=== PATIENT | female | born 1970 | race Caucasian/White ===

== ENCOUNTER 2023-12-12 10:40 | Emergency (ER) | payer MEDICARE, SELFPAY ==
[2023-12-12] VITALS (12 sets, daily range): BP systolic 103–130; BP diastolic 59–75; PULSE 80–129; RESP 10–23; TEMP 36.6; O2SAT 92–97; BMI 25.7
--- NOTE | 2023-12-12 10:48 | DI.RAD.S_ITS ---
PROCEDURE: XR CHEST 1V INDICATIONS: chest pain TECHNIQUE: One view of the chest was acquired. COMPARISON: None. FINDINGS: Surgical changes and devices: None. Lungs and pleura: Lungs are clear. No pleural effusions or pneumothorax. Mediastinum: Mediastinal contours appear normal. Heart size is normal. Bones and chest wall: No suspicious bony lesions. Overlying soft tissues appear unremarkable. IMPRESSION: No acute cardiopulmonary abnormality is seen. Dictated by: Wilbur Phan M.D. on 12/12/2023 at 11:38 Approved by: Wilbur Phan M.D. on 12/12/2023 at 11:38
[2023-12-12 11:09] LABS: Add Manual Diff / Slide Review NO; Basophils Absolute Auto 0 /uL (0-100); Basophils Percent Auto 0.9 % (0-2); Eosinophils Absolute Auto 300 /uL (0-450); Hematocrit 38.5 % (36-46); Hemoglobin 13.2 g/dL (12.0-16.0); Lymphocytes Absolute Auto 1700 /uL (1100-4500); Lymphocytes Percent Auto 31.4 % (25-40); Mean Corpuscular HGB Conc 34.3 % (30-36); Mean Corpuscular Hemoglobin 32.6 PG (26-34); Monocytes Absolute Auto 400 /uL (0-900); Monocytes Percent Auto 7.2 % (3-14); Neutrophils Absolute Auto 3100 /uL (1500-7000); Neutrophils Percent Auto 55.5 % (50-75); Platelet Count 310 X10^3/uL (150-400); Red Blood Cell Count 4.05 X10^6/uL (4.0-5.2); Red Cell Distribution Width 12.5 % (11.6-14.8); White Blood Cell Count 5.5 X10^3/uL (4.5-11.0)
[2023-12-12 11:18] LABS: INR 0.9 (0.9-1.3); Prothrombin Time 10.2 SECONDS (9.4-12.5)
[2023-12-12 11:21] LABS: PTT Partial Thromboplastin Tim 36 SECONDS (25.1-36.5)
[2023-12-12 11:22] LABS: Alanine Aminotransferase 28 IU/L (<35); Albumin 4.5 g/dL (3.5-5.0); Albumin Globulin Ratio 1.4 (1.0-2.8); Alkaline Phosphatase 57 U/L (38-126); Aspartate Aminotransferase 42 IU/L (14-36); BUN Creatinine Ratio 10.6 (6-22); Bilirubin Total 0.7 mg/dL (0.2-1.3); Blood Urea Nitrogen 7 mg/dL (7-17); Calcium 9.5 mg/dL (8.4-10.2); Carbon Dioxide 24 mmol/L (22-32); Chloride 103 mmol/L (98-107); Creatine Kinase 55 U/L (30-135); Estimated Glomerular Filt Rate > 60 mL/min (>60); Globulin 3.2 g/dL (1.7-4.1); Glucose 115 mg/dL (70-100); HEMOLYSIS 18 (0-50); Lipase 46 U/L (23-300); Magnesium 1.5 mg/dL (1.6-2.3); Potassium 3.7 mmol/L (3.4-5.1); Sodium 137 mmol/L (137-145); Total Protein 7.7 g/dL (6.3-8.2)
[2023-12-12 11:33] LABS: Troponin I < 0.012 ng/mL (0.01-0.034)
--- NOTE | 2023-12-12 12:02 | ED_ITS ---
HPI - Arrhythmia/Palpitations General Chief Complaint: Arrhythmia/Palpitations Stated Complaint: shaky heart racing having trouble catching breath Time Seen by Provider: 12/12/23 12:02 Source: patient Mode of arrival: Family Vehicle History of Present Illness HPI narrative: 53-year-old female with history of mood disorder, anxiety on Suboxone. Patient states she is felt weird and out of sorts the last several days. She feels like heart rate is fast and she has had palpitations and felt shaky. She is felt generally weak and like she might pass out. No syncope. Denies headache, denies fevers or chills. No chest pain or pressure, she is felt short of breath today. She denies any cold cough or congestive symptoms. No nausea, no vomiting. No abdominal back flank pain. No dysuria urgency or frequency. No issues with bowel movements such as diarrhea constipation. No vaginal bleeding or discharge. No new swelling in extremities. Patient has not had similar episodes in the past. Patient states she has been on Suboxone for about a month she has been on the same dose the entire time. She was wondering if it might be secondary to her Suboxone. She is also on Effexor, quetiapine, estradiol oral and lamotrigine. She states she has been on these medications for some time with no other dosage changes. She does smoke tobacco, denies any alcohol or recent recreational drugs. Patient lives in [place] but is visiting the [facility] currently. She states she will be returning can follow up locally in [place]. Patient's accompanied by her father Related Data Home Medications Medication Instructions Recorded Confirmed buprenorphine 8 mg-naloxone 2 mg 1 film sublingual ONCE PM PRN pain 12/12/23 12/15/23 sublingual film estradiol 1 mg tablet 1 mg PO ONCE PM 12/12/23 12/15/23 lamotrigine 150 mg tablet 300 mg PO ONCE PM 12/12/23 12/15/23 quetiapine 300 mg tablet 600 mg PO ONCE PM 12/12/23 12/15/23 venlafaxine 37.5 mg tablet 37.5 mg PO DAILY 12/12/23 12/15/23 Previous Rx's Medication Instructions Recorded diazepam 2 mg tablet 2 mg PO BID PRN alcohol withdrawal 12/16/23 3 days #5 tabs gabapentin 300 mg capsule See Rx Instructions .Route 12/16/23 .COMPLEX #10 caps Allergies Allergy/AdvReac Type Severity Reaction Status Date / Time codeine Allergy Verified 12/12/23 10:58 Sulfa (Sulfonamide Allergy Swelling Verified 12/12/23 10:58 Antibiotics) of Lip/Tongue/Throat Review of Systems Review of Systems ROS Unobtainable: All systems reviewed & are unremarkable except as noted in HPI and below Patient History Social History household members: spouse Smoking Status: Current every day smoker alcohol intake: current Smoking Status: Current every day smoker tobacco type: cigarettes alcohol intake frequency: 0-2 drinks per day Substance Use Type: does not use Exam Narrative Exam Narrative: GENERAL: Alert and oriented x three, female in mild distress. HEENT: Head normocephalic, atraumatic, EOMI, pupils reactive, face symmetric, moist mucous membranes NECK: Supple, full range of motion CARDIOVASCULAR: Slightly tachy rate of high 90s to 100 rate and normal rhythm without murmurs, rubs or gallops. No JVD. No swelling bilateral lower extremities. RESPIRATORY: Breath sounds equal bilaterally, no wheezes rales or rhonchi. No tachypnea or accessory muscle use. ABDOMEN: Soft, nontender. Normoactive bowel sounds all 4 quadrants. No guarding or rebound, rigidity, no mass : No CVA tenderness EXTREMITIES: Normal range of motion, no clubbing or edema. Neurovascularly intact NEUROLOGICAL: Cranial nerves II through XII grossly intact. Moving all extremities SKIN: Warm, dry, no petechiae, no rashes or lesions. Initial Vital Signs Initial Vital Signs: Vital Signs Temperature 97.9 F 12/12/23 10:51 Pulse Rate 121 H 12/12/23 10:51 Respiratory Rate 18 12/12/23 10:51 Blood Pressure 130/75 12/12/23 10:51 Pulse Oximetry 95 12/12/23 10:51 Oxygen Delivery Method Room Air 12/12/23 10:51 Course Orders Ordered: Discontinued Medications Aspirin (Aspirin 81 Mg Chew Tab) 324 mg PO NOW ONE Stop: 12/12/23 10:49 Last Admin: 12/12/23 11:07 Dose: Not Given Documented By: DAISY Sodium Chloride (Normal Saline 0.9%) 1,000 mls @ 1,000 mls/hr IV BOLUS ONE Stop: 12/12/23 13:29 Last Infusion: 12/12/23 14:03 Dose: Infused Documented By: Admin: 12/12/23 12:37 Dose: 1,000 mls/hr Documented By: DAISY Magnesium Sulfate (Magnesium Sulfate) 2 gm in 50 mls @ 25 mls/hr IV NOW ONE Stop: 12/12/23 14:29 Last Infusion: 12/12/23 14:41 Dose: Infused Documented By: KATHERINE Co-signed By: LAVON Admin: 12/12/23 12:50 Dose: 25 mls/hr Documented By: DAISY Co-signed By: LAVON Lorazepam (Lorazepam 0.5 Mg Tablet) 0.5 mg PO NOW ONE Stop: 12/12/23 13:28 Last Admin: 12/12/23 13:35 Dose: 0.5 mg Documented By: DAISY Vital Signs Vital signs: Vital Signs - 8 hr 12/12/23 10:51 12/12/23 10:51 12/12/23 10:54 Temperature 97.9 F Pulse Rate 121 H 129 H Respiratory Rate 18 17 Blood Pressure 130/75 130/75 Pulse Oximetry 95 97 Oxygen Delivery Method Room Air Room Air 12/12/23 10:54 12/12/23 11:00 12/12/23 11:00 Temperature Pulse Rate 116 H 109 H Respiratory Rate 16 Blood Pressure 111/74 Pulse Oximetry 94 94 Oxygen Delivery Method 12/12/23 11:30 12/12/23 11:30 12/12/23 12:00 Temperature Pulse Rate 100 H Respiratory Rate 10 L Blood Pressure 103/61 108/64 Pulse Oximetry 93 Oxygen Delivery Method 12/12/23 12:00 12/12/23 12:30 12/12/23 12:30 Temperature Pulse Rate 100 H 95 H Respiratory Rate 16 15 Blood Pressure 113/65 Pulse Oximetry 94 94 Oxygen Delivery Method Room Air Room Air 12/12/23 13:00 12/12/23 13:00 Temperature Pulse Rate 90 Respiratory Rate 15 Blood Pressure 106/60 Pulse Oximetry 92 Oxygen Delivery Method MDM - Arrhythmia/Palpitations Lab Data 12/12/23 11:00 12/12/23 11:00 Labs: Lab Results 12/12/23 Range/Units 11:00 WBC 5.5 (4.5-11.0) X10^3/uL RBC 4.05 (4.0-5.2) X10^6/uL Hgb 13.2 (12.0-16.0) g/dL Hct 38.5 (36-46) % MCV 95.0 (80-100) fL MCH 32.6 (26-34) PG MCHC 34.3 (30-36) % RDW 12.5 (11.6-14.8) % Plt Count 310 (150-400) X10^3/uL Neut % (Auto) 55.5 (50-75) % Lymph % (Auto) 31.4 (25-40) % [place] % (Auto) 7.2 (3-14) % Eos % (Auto) 5.0 H (2-4) % Baso % (Auto) 0.9 (0-2) % Neut # (Auto) 3100 (4371-1393) /uL Lymph # (Auto) 1700 (9861-4370) /uL [place] # (Auto) 400 (0-900) /uL Eos # (Auto) 300 (0-450) /uL Baso # (Auto) 0 (0-100) /uL PT 10.2 (9.4-12.5) SECONDS INR 0.9 (0.9-1.3) APTT 36 (25.1-36.5) SECONDS D-Dimer 382 (<500) ng/ml Sodium 137 (137-145) mmol/L Potassium 3.7 (3.4-5.1) mmol/L Chloride 103 (98-107) mmol/L Carbon Dioxide 24 (22-32) mmol/L BUN 7 (7-17) mg/dL Creatinine 0.66 (0.52-1.04) mg/dL Estimated GFR > 60 (>60) mL/min BUN/Creatinine Ratio 10.6 (6-22) Glucose 115 H (70-100) mg/dL Calcium 9.5 (8.4-10.2) mg/dL Magnesium 1.5 L (1.6-2.3) mg/dL Total Bilirubin 0.7 (0.2-1.3) mg/dL AST 42 H (14-36) IU/L ALT 28 (<35) IU/L Alkaline Phosphatase 57 (38-126) U/L Total Creatine Kinase 55 (30-135) U/L Troponin I < 0.012 (0.01-0.034) ng/mL Total Protein 7.7 (6.3-8.2) g/dL Albumin 4.5 (3.5-5.0) g/dL Globulin 3.2 (1.7-4.1) g/dL Albumin/Globulin Ratio 1.4 (1.0-2.8) Lipase 46 (23-300) U/L Lamotrigine 11.3 (2.0-20.0) ug/mL Imaging Data Chest x-ray: Radiologist's Impresson: [address] [id number] XRay Report Signed Patient: Claire Eaton MR#: [id number] : 1970 Acct:[id number] Age/Sex: 53 / F Date of Service: 12/12/23 Loc: ED Accession Number: [id number] Procedure: XR chest 1V Ordering Provider: Louise Quach D.O. PROCEDURE: XR CHEST 1V INDICATIONS: chest pain TECHNIQUE: One view of the chest was acquired. COMPARISON: None. FINDINGS: Surgical changes and devices: None. Lungs and pleura: Lungs are clear. No pleural effusions or pneumothorax. Mediastinum: Mediastinal contours appear normal. Heart size is normal. Bones and chest wall: No suspicious bony lesions. Overlying soft tissues appear unremarkable. IMPRESSION: No acute cardiopulmonary abnormality is seen. Dictated by: Wilbur Phan M.D. on 12/12/2023 at 11:38 Approved by: Wilbur Phan M.D. on 12/12/2023 at 11:38 ECG Data Attestation: I personally reviewed and interpreted this ECG as follows: Interpretation: Sinus tachycardia rate of 112 ND 152 QRS of 96 QTC 447. Q-wave 2 3 AVF., no acute ST elevation depression. Patient has no priors for comparison. MDM Narrative Medical decision making narrative: 53-year-old female with mood disorder, on Suboxone for approximately a month. Patient is felt sort of out of sorts and weird for several days and feels palpitations and shaky and like her heart rate is fast and lightheaded in the last day. Initial labs including CBC, coags, CMP are appropriate, Mag is 1.5, AST is 42, other LFTs are negative. Troponins negative. Chest x-ray was negative. EKG showed some sinus tach Q-wave in 2 3 AVF but no T-wave inversions or elevation. No priors for comparison. Discussed with patient she is on oral estrogen, she does continue to smoke, she is driven up from [place] so we will add a D-dimer on she has felt a little short of breath in his slightly tachycardic. D-dimer is negative. Also sent a Lamictal level, this is pending in his send out. Patient is quite concerned that her Suboxone maybe causing her symptoms she notes she has been on the same dose for the entire month but we discussed she could hold the doses he how she tolerates. She asked if there was anything to reverse it we discussed Narcan but I did not recommend that. Patient was given a 1L of fluid, magnesium replacement on recheck. Patient's heart rate has not improved. Discharge Plan Departure Patient Disposition: Home Clinical Impression: Palpitations Activity Restrictions/Additional Instructions: Please follow up for recheck. Your Lamictal level is pending. Please call to follow up your level of the next day or two. If you would like you can hold your Suboxone but you will likely have some withdrawal symptoms. Make sure you continue to hydrate. Please return for fevers, severe headaches, passing out, new chest pain, increasing shortness of breath, persistent vomiting, new swelling in extremities, black or bloody stools or other new or Prescriptions: No Action buprenorphine-naloxone 8-2 mg film 1 film sublingual ONCE PM PRN (Reason: pain) Patient Comments: cuts into 3 and splits the dose each day estradiol 1 mg tablet 1 mg PO ONCE PM lamotrigine 150 mg tablet 300 mg PO ONCE PM quetiapine 300 mg tablet 600 mg PO ONCE PM venlafaxine 37.5 mg tablet 37.5 mg PO DAILY gabapentin 300 mg capsule See Rx Instructions .ROUTE .COMPLEX Qty: 10 0RF Rx Instructions: 300 mg PO every 6 hours day 1, every 8 hours day 2, every 12 hours day 3, then at night on day 4. diazepam 2 mg tablet 2 mg PO BID PRN (Reason: alcohol withdrawal) 3 Days Qty: 5 0RF Stand Alone Forms: Patient Portal/API
[2023-12-12] MEDS: SODIUM CHLORIDE 0.9% 1,000 ML 1000 ML IV (12:37)
[2023-12-12] MEDS: MAGNESIUM SULFATE 2 GM/50 ML PIGGYBACK IV (12:50)
[2023-12-12 13:07] LABS: D Dimer 382 ng/ml (<500)
[2023-12-12] MEDS: LORazepam 0.5 MG TABLET PO (13:35)
[2023-12-17 15:29] LABS: Lamotrigine Lamictal 11.3 ug/mL (2.0-20.0)
== END 2023-12-12 14:45 | disposition home or self-care (01) ==
PROVIDERS: Emergency Provider Emergency Medicine
DX: R00.2 Palpitations (principal); R07.9 Chest pain, unspecified
CPT/HCPCS: 36415; 71045; 80053; 80175; 82550; 83690; 83735; 84484; 85025; 85379; 85610; 85730; 93005; 99284; J3475

== ENCOUNTER 2023-12-15 17:50 | Observation (INO) | payer MEDICARE, SELFPAY ==
[2023-12-15] VITALS (22 sets, daily range): BP systolic 124–174; BP diastolic 74–111; PULSE 76–106; RESP 10–47; TEMP 36.7–37; O2SAT 92–99; BMI 25.7
--- NOTE | 2023-12-15 06:52 | DI.MRI.S_ITS ---
PROCEDURE: MR HEAD/BRAIN WO CON INDICATIONS: altered mental status TECHNIQUE: Noncontrast axial T1 spin echo, axial T2 fast spin echo, sagittal and axial FLAIR, coronal T2 fast spin echo, axial gradient echo, axial diffusion and ADC through the brain. COMPARISON: None. FINDINGS: Image quality: There are motion artifacts. CSF Spaces: Basal cisterns are patent. No extra-axial fluid collections. Ventricles are normal in size and shape. Brain: No intracranial masses or hemorrhage. Lag[place]re/white matter interface is normal. Brainstem appears normal. Diffusion-weighted images demonstrate no acute infarct. No chronic ischemic insults. Normal intravascular flow voids are present. Skull and face: Calvarium has normal marrow signal. Orbits appear normal. Sinuses: Sinuses and mastoids are clear. IMPRESSION: 1. No acute intracranial abnormalities. Dictated by: Ade Haji M.D. on 12/16/2023 at 8:23 Approved by: Ade Haji M.D. on 12/16/2023 at 8:25
--- NOTE | 2023-12-15 18:22 | ED.GENADULT ---
HPI - General Adult General Chief complaint: Toxicology Problem Stated complaint: Feels faint Time Seen by Provider: 12/15/23 18:04 Source: patient and family History of Present Illness HPI narrative: Patient comes to the ED with her sister. She is normally a resident in [place] but has been visiting this area for the past month living with her sister and mother. Her mother is in poor health. She has been stable with her opioid dependence now for some months on 8 mg buprenorphine daily. She also drinks alcohol ?2 glasses of wine? daily. She says that has been the case for many months. Sister suspects that perhaps this is more recently than she had been drinking. The patient reports a general feeling of unwellness over the past week. She says she feels like she might pass out. She says she feels discomfort in her chest and abdomen though not discrete pain. She denies URI symptoms. She endorses nausea but denies vomiting. No GI symptoms otherwise. Specifically no constipation or diarrhea. No dysuria urgency or frequency. No fever. No new medications. She says she takes a number of medications for and is disabled because of bipolar disorder. No recent medication changes. No other sedative medications. She does smoke cigarettes daily. Related Data Home Medications Medication Instructions Recorded Confirmed buprenorphine 8 mg-naloxone 2 mg 10 mg sublingual ONCE PM PRN pain 12/12/23 12/12/23 sublingual film estradiol 1 mg tablet 1 mg PO ONCE PM 12/12/23 12/12/23 lamotrigine 150 mg tablet 300 mg PO ONCE PM 12/12/23 12/12/23 quetiapine 300 mg tablet 600 mg PO ONCE PM 12/12/23 12/12/23 venlafaxine 37.5 mg tablet 37.5 mg PO DAILY 12/12/23 12/12/23 Allergies Allergy/AdvReac Type Severity Reaction Status Date / Time codeine Allergy Verified 12/12/23 10:58 Sulfa (Sulfonamide Allergy Swelling Verified 12/12/23 10:58 Antibiotics) of Lip/Tongue/Throat Patient History Social History Smoking Status: Current every day smoker Smoking Status: Current every day smoker tobacco type: cigarettes alcohol intake frequency: 0-2 drinks per day Substance Use Type: does not use Exam Narrative Exam Narrative: GENERAL: Alert, cooperative and in no distress. HEAD: Atraumatic. Normocephalic. EYES: Sclera are clear without icterus. Extraocular movements are full. Pupils are abnormally dilated bilaterally ENT: No rhinorrhea. Oropharynx is moist. Mouth exam is benign. NECK: Supple. Full range of motion. CARDIOVASCULAR: Normal rate and rhythm without murmur gallop or rub. RESPIRATORY: Clear to auscultation. Breath sounds equal bilaterally. No wheezes, rales, or rhonchi. GASTROINTESTINAL: Abdomen soft, non-tender, nondistended. EXTREMITIES: No edema, full range of motion. No obvious trauma. BACK: Normal inspection, no CVA tenderness. NEURO: Nonfocal examination, normal speech, she seems to have poor muscle tone when I move her head [id number] but she is able to sit up on her own so I can examine her back without any apparent difficulty. SKIN: No rash or erythema of visible areas PSYCH: Normally oriented. Normal range of affect. Appropriate behavior, she does not make eye contact with me unless I ask her to explicitly. Initial Vital Signs Initial Vital Signs: Vital Signs Pulse Rate 106 H 12/15/23 17:54 Respiratory Rate 25 H 12/15/23 17:54 Pulse Oximetry 97 12/15/23 17:54 Course Orders Ordered: ED Orders 12/15/23 18:27 Complete Blood Count AUTO DIFF Stat Comprehensive Metabolic Panel Stat D Dimer Stat Ethanol (ETOH) Stat Hepatic (Liver) Panel Stat Lactate (Lactic Acid) Stat Troponin & CK Cardiac Panel Stat 12/15/23 18:39 Urine Drug Screen, Rapid Stat 12/15/23 19:25 EKG-12 Lead Stat Sodium Chloride (Normal Saline 0.9%) 1,000 mls @ 150 mls/hr IV CONT EVANS Last Infusion: 12/15/23 20:43 Dose: Infused Documented By: Infusion: 12/15/23 20:41 Dose: 999 mls/hr Documented By: Infusion: 12/15/23 20:08 Dose: 1,000 mls/hr Documented By: Admin: 12/15/23 18:39 Dose: 150 mls/hr Documented By: BS Discontinued Medications Diazepam (Diazepam 5 Mg Tablet) 5 mg PO NOW ONE Stop: 12/15/23 18:28 Last Admin: 12/15/23 18:39 Dose: 5 mg Documented By: DELANO Diazepam (Diazepam 5 Mg Tablet) 5 mg PO NOW ONE Stop: 12/15/23 20:11 Last Admin: 12/15/23 20:18 Dose: 5 mg Documented By: Ondansetron HCl (Ondansetron 4 Mg/2 Ml Inj) 4 mg IV NOW ONE Stop: 12/15/23 18:28 Last Admin: 12/15/23 18:39 Dose: 4 mg Documented By: DELANO Vital Signs Vital signs: Vital Signs - 8 hr 12/15/23 17:54 12/15/23 17:55 12/15/23 17:55 Temperature 98.1 F Pulse Rate 106 H 97 H 106 H Respiratory Rate 25 H 20 16 Blood Pressure 162/94 H Pulse Oximetry 97 98 99 Oxygen Delivery Method Room Air 12/15/23 17:55 12/15/23 18:00 12/15/23 18:00 Temperature Pulse Rate 97 H Respiratory Rate 15 Blood Pressure 173/94 H 162/94 H Pulse Oximetry 96 Oxygen Delivery Method 12/15/23 18:15 12/15/23 18:15 12/15/23 18:30 Temperature Pulse Rate 99 H Respiratory Rate 23 Blood Pressure 167/99 H 173/111 H Pulse Oximetry 97 Oxygen Delivery Method 12/15/23 18:30 12/15/23 18:45 12/15/23 18:45 Temperature Pulse Rate 93 H 88 Respiratory Rate 15 15 Blood Pressure 169/107 H Pulse Oximetry 94 95 Oxygen Delivery Method Room Air 12/15/23 19:00 12/15/23 19:00 12/15/23 19:15 Temperature Pulse Rate 87 86 Respiratory Rate 15 28 H Blood Pressure 159/100 H Pulse Oximetry 92 92 Oxygen Delivery Method 12/15/23 19:15 12/15/23 19:30 12/15/23 19:30 Temperature Pulse Rate 84 Respiratory Rate 13 Blood Pressure 148/92 H 156/96 H Pulse Oximetry 92 Oxygen Delivery Method Medical Decision Making Lab Data 12/15/23 18:27 12/15/23 18:27 Labs: Lab Results 12/15/23 12/15/23 12/15/23 Range/Units 18:27 18:39 20:35 WBC 5.2 (4.5-11.0) X10^3/uL RBC 3.99 L (4.0-5.2) X10^6/uL Hgb 13.2 (12.0-16.0) g/dL Hct 37.9 (36-46) % MCV 94.9 (80-100) fL MCH 33.0 (26-34) PG MCHC 34.8 (30-36) % RDW 12.5 (11.6-14.8) % Plt Count 286 (150-400) X10^3/uL Neut % (Auto) 41.3 L (50-75) % Lymph % (Auto) 47.0 H (25-40) % [place] % (Auto) 9.4 (3-14) % Eos % (Auto) 0.6 L (2-4) % Baso % (Auto) 1.7 (0-2) % Neut # (Auto) 2200 (0945-0715) /uL Lymph # (Auto) 2500 (7166-4428) /uL [place] # (Auto) 500 (0-900) /uL Eos # (Auto) 0 (0-450) /uL Baso # (Auto) 100 (0-100) /uL D-Dimer 268 (<500) ng/ml Sodium 137 (137-145) mmol/L Potassium 5.1 D (3.4-5.1) mmol/L Chloride 102 (98-107) mmol/L Carbon Dioxide 22 (22-32) mmol/L BUN 5 L (7-17) mg/dL Creatinine 0.66 (0.52-1.04) mg/dL Estimated GFR > 60 (>60) mL/min BUN/Creatinine Ratio 7.6 (6-22) Glucose 104 H (70-100) mg/dL Lactate 2.9 H 2.0 (0.7-2.1) mmol/L Calcium 9.6 (8.4-10.2) mg/dL Total Bilirubin 1.4 H (0.2-1.3) mg/dL Conjugated Bilirubin 0.0 (0.0-0.3) md/dL Unconjugated Bilirubin 0.3 (0.0-1.1) mg/dL AST 52 H (14-36) IU/L ALT 26 (<35) IU/L Alkaline Phosphatase 45 (38-126) U/L Total Creatine Kinase 91 (30-135) U/L Troponin I 0.022 (0.01-0.034) ng/mL Total Protein 8.6 H (6.3-8.2) g/dL Albumin 5.1 H (3.5-5.0) g/dL Globulin 3.5 (1.7-4.1) g/dL Albumin/Globulin Ratio 1.5 (1.0-2.8) U Opiates 300ng/mL cut Negative (Negative) Ur Oxycodone Screen Negative (Negative) Urine Methadone Screen Negative (Negative) Ur Barbiturates Screen Negative (Negative) U Tricyclic Antidepress Negative (Negative) Ur Phencyclidine Scrn Negative (Negative) Ur Amphetamines Screen Negative (Negative) U Methamphetamines Scrn Negative (Negative) Ur MDMA Scrn (Ecstasy) Negative (Negative) U Benzodiazepines Scrn Negative (Negative) Urine Cocaine Screen Negative (Negative) U Marijuana (THC) Screen Negative (Negative) Urine pH Normal (Normal) Urine Specific [place] Normal (Normal) Ethyl Alcohol 88 H ( - 10) mg/dL Ur Creatinine Normal (Normal) Point of Care Testing Test Results Negative Urine Dip Bedside Urine Glucose Negative Bedside Urine Bilirubin - Negative Bedside Urine Ketone - Negative Urine Specific [place] 1.000 Bedside Urine Occult Blood - Negative Bedside Urine pH 6.0 Bedside Urine Protein - Negative Bedside Urine Urobilinogen - Negative Bedside Urine Nitrite - Negative Bedside Urine Leukocytes - Negative Esterase Point of care testing: Point of Care Testing Test Results Negative Urine Dip Bedside Urine Glucose Negative Bedside Urine Bilirubin - Negative Bedside Urine Ketone - Negative Urine Specific [place] 1.000 Bedside Urine Occult Blood - Negative Bedside Urine pH 6.0 Bedside Urine Protein - Negative Bedside Urine Urobilinogen - Negative Bedside Urine Nitrite - Negative Bedside Urine Leukocytes - Negative Esterase ECG Data Interpretation: ECG obtained at 7:24 pm, shows sinus rhythm at 82 beats per minute. LVH. T-wave inversions in V1 V2. MDM Narrative Medical decision making narrative: Patient with a constellation of vague complaints. Mild tachycardia but otherwise no objective abnormalities other than mydriasis. We will check for metabolic disturbance, will give Valium to help quiet her symptoms of anxiety right now. We will check D-dimer and proceed with detailed pulmonary imaging if elevated. We will check a urine drug screen as well. I had a lengthy discussion with the patient and her sister who is an independent historian. Her AUDIT-C score is 6. Her CIWA-Ar score is 20. At the end of the day I really think that alcohol withdrawal is the primary player in this situation today. I think there is probably an element of opioid withdrawal as well because of the way the patient has been adjusting her buprenorphine. Spoke to Dr. Miller who agrees to accept the patient for alcohol withdrawal Discharge Plan Departure Patient Disposition: Admitted As Inpatient Clinical Impression: Alcohol withdrawal syndrome, Opioid dependence Prescriptions: No Action buprenorphine-naloxone 8-2 mg film 10 mg sublingual ONCE PM PRN (Reason: pain) Patient Comments: cuts into 3 and splits the dose each day estradiol 1 mg tablet 1 mg PO ONCE PM lamotrigine 150 mg tablet 300 mg PO ONCE PM quetiapine 300 mg tablet 600 mg PO ONCE PM venlafaxine 37.5 mg tablet 37.5 mg PO DAILY
[2023-12-15] MEDS: SODIUM CHLORIDE 0.9% 1,000 ML 150 ML IV (18:39)
[2023-12-15] MEDS: diazePAM 5 MG TABLET PO ×2 (18:39→20:18)
[2023-12-15] MEDS: ONDANSETRON 4 MG/2 ML INJ IV (18:39)
[2023-12-15 18:42] LABS: Add Manual Diff / Slide Review NO; Basophils Absolute Auto 100 /uL (0-100); Basophils Percent Auto 1.7 % (0-2); Eosinophils Absolute Auto 0 /uL (0-450); Eosinophils Percent Auto 0.6 % (2-4); Hematocrit 37.9 % (36-46); Hemoglobin 13.2 g/dL (12.0-16.0); Lymphocytes Absolute Auto 2500 /uL (1100-4500); Mean Corpuscular HGB Conc 34.8 % (30-36); Mean Corpuscular Volume 94.9 fL (80-100); Monocytes Absolute Auto 500 /uL (0-900); Monocytes Percent Auto 9.4 % (3-14); Neutrophils Absolute Auto 2200 /uL (1500-7000); Neutrophils Percent Auto 41.3 % (50-75); Platelet Count 286 X10^3/uL (150-400); Red Blood Cell Count 3.99 X10^6/uL (4.0-5.2); Red Cell Distribution Width 12.5 % (11.6-14.8); White Blood Cell Count 5.2 X10^3/uL (4.5-11.0)
[2023-12-15 18:50] LABS: D Dimer 268 ng/ml (<500)
[2023-12-15 18:54] LABS: Lactate (Lactic Acid) 2.9 mmol/L (0.7-2.1)
[2023-12-15 18:55] LABS: Alanine Aminotransferase 26 IU/L (<35); Albumin 5.1 g/dL (3.5-5.0); Albumin Globulin Ratio 1.5 (1.0-2.8); Alkaline Phosphatase 45 U/L (38-126); Aspartate Aminotransferase 52 IU/L (14-36); BUN Creatinine Ratio 7.6 (6-22); Bilirubin Total 1.4 mg/dL (0.2-1.3); Bilirubin Unconjugated 0.3 mg/dL (0.0-1.1); Blood Urea Nitrogen 5 mg/dL (7-17); Calcium 9.6 mg/dL (8.4-10.2); Carbon Dioxide 22 mmol/L (22-32); Chloride 102 mmol/L (98-107); Creatine Kinase 91 U/L (30-135); Estimated Glomerular Filt Rate > 60 mL/min (>60); Ethanol (ETOH) 88 mg/dL; Globulin 3.5 g/dL (1.7-4.1); Glucose 104 mg/dL (70-100); Potassium 5.1 mmol/L (3.4-5.1); Sodium 137 mmol/L (137-145); Total Protein 8.6 g/dL (6.3-8.2)
[2023-12-15 18:58] LABS: HEMOLYSIS 252 (0-50)
[2023-12-15 19:01] LABS: UR Morphine/Opiate cutoff 300 Negative (Negative); Ur Creatinine Normal (Normal); Ur Specific Gravity Normal (Normal); Urine Amphetamines Negative (Negative); Urine Barbiturates Negative (Negative); Urine Benzodiazepines Negative (Negative); Urine Cocaine Negative (Negative); Urine MDMA Negative (Negative); Urine Methadone Negative (Negative); Urine Methamphetamines Negative (Negative); Urine Oxycodone Negative (Negative); Urine Phencyclidine Negative (Negative); Urine Tetrahydrocannabinol Negative (Negative); Urine Tricyclic Antidepressant Negative (Negative); Urine pH Normal (Normal)
[2023-12-15 19:06] LABS: Troponin I 0.022 ng/mL (0.01-0.034)
[2023-12-15 20:18] LABS: Reflexed Lactate in 2 Hours Y
--- NOTE | 2023-12-15 20:56 | PC.NURSE ---
Pt is on a suboxone regimen. She states that she drinks at least 2 glasses of wine nightly with suboxone. Educated pt on suboxone use and the need to follow up with prescribing provider on dosing and symptoms. Pt and family acknowledge understanding.
[2023-12-15] MEDS: diazePAM 10 MG/2 ML SYRINGE IV (21:36)
[2023-12-15] MEDS: NICOTINE 21 MG PATCH TOP (22:19)
[2023-12-15] MEDS: estradioL 1 MG TABLET PO (22:19)
[2023-12-15] MEDS: THIAMINE 100 MG TABLET PO (22:19)
[2023-12-15] MEDS: ACETAMINOPHEN 325 MG TABLET 650 MG PO (22:20)
[2023-12-15] MEDS: LORazepam 2 MG/ML INJ IV (22:49)
--- NOTE | 2023-12-15 23:08 | PM.HP.1 ---
History of Present Illness History of Present Illness Date Patient Seen: 12/15/23 Time Patient Seen: 23:08 Chief complaint: Feels faint Narrative: The pt is a 53 yo who presents to the ER tonight due to dizziness, jittery, weakness in the legs to the point she says her legs feel like they may give out. I was unable to get any other specific symptom from her other than a generalized feeling of malaise and fatigue. The pt reports that she had a head injury several years ago and was treated with oxycodone with increasing amounts up to 60mg daily until a provider in [place] put her on Suboxone. Currently she is on 8/2 tablets and takes 1/3 of a tablet three times a day, there has been no change in the dosages or frequently recently. The pt also states that she has been drinking about a bottle of wine daily for the past several months to weeks without a change in amount of frequency, her last bottle was yesterday. There has been no recent LOC, falling, seizures, vertigo, HEARD, neck pain, SOB, cough, CP, N/V/Diarrhea, change in weight, diet, no change in meds, PFSH Social History household members: spouse Smoking Status: Current every day smoker alcohol intake: current Meds Home Medications and Allergies Home Medications Medication Instructions Recorded Confirmed Type buprenorphine 8 mg-naloxone 2 mg 1 film sublingual ONCE PM PRN pain 12/12/23 12/15/23 History sublingual film estradiol 1 mg tablet 1 mg PO ONCE PM 12/12/23 12/15/23 History lamotrigine 150 mg tablet 300 mg PO ONCE PM 12/12/23 12/15/23 History quetiapine 300 mg tablet 600 mg PO ONCE PM 12/12/23 12/15/23 History venlafaxine 37.5 mg tablet 37.5 mg PO DAILY 12/12/23 12/15/23 History Allergies Allergy/AdvReac Type Severity Reaction Status Date / Time codeine Allergy Verified 12/12/23 10:58 Sulfa (Sulfonamide Allergy Swelling Verified 12/12/23 10:58 Antibiotics) of Lip/Tongue/Throat Exam Vital Signs (past 8 hours): - 12/15/23 17:54 12/15/23 17:55 12/15/23 17:55 Temperature 98.1 F Pulse Rate 106 H 97 H 106 H Respiratory Rate 25 H 20 16 Blood Pressure 162/94 H Pulse Oximetry 97 98 99 Oxygen Delivery Method Room Air 12/15/23 17:55 12/15/23 18:00 12/15/23 18:00 Temperature Pulse Rate 97 H Respiratory Rate 15 Blood Pressure 173/94 H 162/94 H Pulse Oximetry 96 Oxygen Delivery Method 12/15/23 18:15 12/15/23 18:15 12/15/23 18:30 Temperature Pulse Rate 99 H Respiratory Rate 23 Blood Pressure 167/99 H 173/111 H Pulse Oximetry 97 Oxygen Delivery Method 12/15/23 18:30 12/15/23 18:45 12/15/23 18:45 Temperature Pulse Rate 93 H 88 Respiratory Rate 15 15 Blood Pressure 169/107 H Pulse Oximetry 94 95 Oxygen Delivery Method Room Air 12/15/23 19:00 12/15/23 19:00 12/15/23 19:15 Temperature Pulse Rate 87 86 Respiratory Rate 15 28 H Blood Pressure 159/100 H Pulse Oximetry 92 92 Oxygen Delivery Method 12/15/23 19:15 12/15/23 19:30 12/15/23 19:30 Temperature Pulse Rate 84 Respiratory Rate 13 Blood Pressure 148/92 H 156/96 H Pulse Oximetry 92 Oxygen Delivery Method 12/15/23 19:45 12/15/23 19:45 12/15/23 19:59 Temperature Pulse Rate 86 Respiratory Rate 14 Blood Pressure 156/99 H 156/96 H Pulse Oximetry 94 Oxygen Delivery Method 12/15/23 19:59 12/15/23 20:00 12/15/23 20:00 Temperature Pulse Rate 87 89 Respiratory Rate 14 12 Blood Pressure 157/99 H Pulse Oximetry 95 95 Oxygen Delivery Method 12/15/23 20:15 12/15/23 20:15 12/15/23 20:30 Temperature Pulse Rate 93 H 96 H Respiratory Rate 10 L 23 Blood Pressure 162/101 H Pulse Oximetry 95 95 Oxygen Delivery Method 12/15/23 20:30 12/15/23 20:45 12/15/23 20:45 Temperature Pulse Rate 97 H Respiratory Rate 23 Blood Pressure 157/94 H 170/101 H Pulse Oximetry 95 Oxygen Delivery Method 12/15/23 21:00 12/15/23 21:15 12/15/23 21:15 Temperature Pulse Rate 92 H 86 Respiratory Rate 24 12 Blood Pressure 174/97 H Pulse Oximetry 94 94 Oxygen Delivery Method Room Air 12/15/23 21:30 12/15/23 21:30 12/15/23 21:43 Temperature Pulse Rate 94 H Respiratory Rate 47 H Blood Pressure 171/103 H 157/83 H Pulse Oximetry 96 Oxygen Delivery Method 12/15/23 21:43 12/15/23 21:50 Temperature 98.6 F Pulse Rate 82 76 Respiratory Rate 16 10 L Blood Pressure 159/89 H Pulse Oximetry 93 94 Oxygen Delivery Method Oxygen Delivery Method Room Air Const General: cooperative, healthy appearing, comfortable and well developed Eyes General: appearance normal, both eyes and all related structures Resp Effort & Inspection: normal respiratory effort Auscultation: clear to auscultation bilaterally Cardio Rate: regular rate Rhythm: regular rhythm GI Auscultation: normal bowel sounds Neuro General: patient alert, patient awake, patient oriented x3 and moves all extremities Objective Labs 12/15/23 18:27 12/15/23 18:27 Labs: Laboratory Results - last 24 hr 12/15/23 12/15/23 12/15/23 18:27 18:39 20:35 WBC 5.2 RBC 3.99 L Hgb 13.2 Hct 37.9 MCV 94.9 MCH 33.0 MCHC 34.8 RDW 12.5 Plt Count 286 Neut % (Auto) 41.3 L Lymph % (Auto) 47.0 H [place] % (Auto) 9.4 Eos % (Auto) 0.6 L Baso % (Auto) 1.7 Neut # (Auto) 2200 Lymph # (Auto) 2500 [place] # (Auto) 500 Eos # (Auto) 0 Baso # (Auto) 100 D-Dimer 268 Sodium 137 Potassium 5.1 D Chloride 102 Carbon Dioxide 22 BUN 5 L Creatinine 0.66 Estimated GFR > 60 BUN/Creatinine Ratio 7.6 Glucose 104 H Lactate 2.9 H 2.0 Calcium 9.6 Total Bilirubin 1.4 H Conjugated Bilirubin 0.0 Unconjugated Bilirubin 0.3 AST 52 H ALT 26 Alkaline Phosphatase 45 Total Creatine Kinase 91 Troponin I 0.022 Total Protein 8.6 H Albumin 5.1 H Globulin 3.5 Albumin/Globulin Ratio 1.5 U Opiates 300ng/mL cut Negative Ur Oxycodone Screen Negative Urine Methadone Screen Negative Ur Barbiturates Screen Negative U Tricyclic Antidepress Negative Ur Phencyclidine Scrn Negative Ur Amphetamines Screen Negative U Methamphetamines Scrn Negative Ur MDMA Scrn (Ecstasy) Negative U Benzodiazepines Scrn Negative Urine Cocaine Screen Negative U Marijuana (THC) Screen Negative Urine pH Normal Urine Specific [place] Normal Ethyl Alcohol 88 H Ur Creatinine Normal Assessment & Plan Assessment & Plan narrative: 1. Weakness/ ataxia- The pt will be admitted for work up for her symptoms. WIll put the pt on alcohol withdrawal order set wtih CIWA and ativan prn. The pt has not changed her intake of alcohol or suboxone recently. It is clear that she needs to stop the alcohol intake with the Suboxone but it is unclear if this represents withdrawal. I discussed the case with the ER provider and have agreed with admission. Due to the vague presenting symptoms, will order MRI of head to evaluate central process causing these symptoms, labs reviewed, all within normal limits. I have restarted home Suboxone, pt has home dose at bedside which she is allowed to take. 2. Chronic narcotic dependency- see above, 3. HTN- reviewing home meds, could be withdrawal which ativan will help but also will order metoprolol
[2023-12-15] MEDS: BUPRENORPHINE/NALOXONE 8MG/2MG 1 TAB SL (23:23)
--- NOTE | 2023-12-15 23:54 | PC.NURSE ---
Pt. arrived to the unit at 2150 via wheelchair. Pt. is alert and oriented but anxious. Oriented to bed and call light use. Place on seizure precautions, seizure pads on all siderails and bed alarm activated.
[2023-12-16] MEDS: VENLAFAXINE 37.5 MG TABLET PO ×2 (00:14→08:36)
[2023-12-16 00:21] VITALS: BP 135/70; PULSE 83; RESP 14; TEMP 36.3; O2SAT 95
[2023-12-16] MEDS: LORazepam 0.5 MG TABLET PO ×3 (01:40→08:36)
[2023-12-16 04:00] VITALS: BP 143/74; PULSE 84; RESP 12; TEMP 36.6; O2SAT 94; O2SAT 95
[2023-12-16 04:56] LABS: Add Manual Diff / Slide Review NO; Basophils Absolute Auto 0 /uL (0-100); Basophils Percent Auto 0.8 % (0-2); Eosinophils Absolute Auto 200 /uL (0-450); Eosinophils Percent Auto 3.7 % (2-4); Hematocrit 35.1 % (36-46); Hemoglobin 12.2 g/dL (12.0-16.0); Lymphocytes Absolute Auto 2800 /uL (1100-4500); Mean Corpuscular HGB Conc 34.8 % (30-36); Mean Corpuscular Hemoglobin 33.2 PG (26-34); Mean Corpuscular Volume 95.3 fL (80-100); Monocytes Absolute Auto 400 /uL (0-900); Monocytes Percent Auto 9.1 % (3-14); Neutrophils Absolute Auto 1000 /uL (1500-7000); Neutrophils Percent Auto 23.4 % (50-75); Platelet Count 254 X10^3/uL (150-400); Red Blood Cell Count 3.68 X10^6/uL (4.0-5.2); Red Cell Distribution Width 12.2 % (11.6-14.8); White Blood Cell Count 4.4 X10^3/uL (4.5-11.0)
[2023-12-16 05:06] LABS: Alanine Aminotransferase 22 IU/L (<35); Albumin 3.9 g/dL (3.5-5.0); Albumin Globulin Ratio 1.4 (1.0-2.8); Alkaline Phosphatase 48 U/L (38-126); Aspartate Aminotransferase 32 IU/L (14-36); Bilirubin Total 0.7 mg/dL (0.2-1.3); Blood Urea Nitrogen 6 mg/dL (7-17); Calcium 8.8 mg/dL (8.4-10.2); Carbon Dioxide 29 mmol/L (22-32); Chloride 101 mmol/L (98-107); Estimated Glomerular Filt Rate > 60 mL/min (>60); Globulin 2.8 g/dL (1.7-4.1); Glucose 111 mg/dL (70-100); HEMOLYSIS < 15 (0-50); Potassium 3.8 mmol/L (3.4-5.1); Sodium 134 mmol/L (137-145); Total Protein 6.7 g/dL (6.3-8.2)
[2023-12-16] MEDS: PANTOPRAZOLE DR 20 MG TABLET PO (05:38)
[2023-12-16 06:17] LABS: MRSA (Nasal) PCR Not Detected (Not Detect)
[2023-12-16 07:18] VITALS: BP 143/82; PULSE 72; RESP 16; TEMP 36.3; O2SAT 93
[2023-12-16 08:00] VITALS: O2SAT 100
[2023-12-16] MEDS: ENOXAPARIN 40 MG/0.4 ML SYRINGE SUBCUT (08:35)
[2023-12-16] MEDS: THIAMINE 100 MG TABLET PO (08:36)
[2023-12-16] MEDS: MULTIVITAMIN 1 TABLET 1 TAB PO (08:36)
[2023-12-16] MEDS: FOLIC ACID 1 MG TABLET PO (08:36)
[2023-12-16] MEDS: diazePAM 5 MG TABLET PO (09:19)
[2023-12-16] MEDS: GABAPENTIN 300 MG CAPSULE PO (09:19)
--- NOTE | 2023-12-16 10:10 | PM.DS.1 ---
History of Present Illness History of Present Illness Date Patient Seen: 12/16/23 Time Patient Seen: 09:00 Chief complaint: Feels faint Narrative: The pt is a 53 yo who presents to the ER tonight due to dizziness, jittery, weakness in the legs to the point she says her legs feel like they may give out. I was unable to get any other specific symptom from her other than a generalized feeling of malaise and fatigue. The pt reports that she had a head injury several years ago and was treated with oxycodone with increasing amounts up to 60mg daily until a provider in [place] put her on Suboxone. Currently she is on 8/2 tablets and takes 1/3 of a tablet three times a day, there has been no change in the dosages or frequently recently. The pt also states that she has been drinking about a bottle of wine daily for the past several months to weeks without a change in amount of frequency, her last bottle was yesterday. There has been no recent LOC, falling, seizures, vertigo, HEARD, neck pain, SOB, cough, CP, N/V/Diarrhea, change in weight, diet, no change in meds, Discharge Providers Provider Date of admission: 12/15/23 21:17 Discharge Date: 12/16/23 Consults: 12/15/23 21:30 Consult to Occupational Therapy Evaluate & Treat Comment: Physician Instructions: Evaluate and treat Consult to Physical Therapy Evaluate & Treat Comment: Physician Instructions: Evaluate and Treat 12/15/23 21:31 Consult to Dietitian, Adult Routine Comment: Reason For Exam: malnutrition 12/15/23 22:37 Consult to Senior [id number] Routine Comment: 12/15/23 23:08 Consult to Pharmacy Routine Comment: pt may take own suboxone from home Discharge provider: Umair Mendoza DO Summary Hospital Course Discharge Diagnosis: 1. Mild alcohol withdrawal 2. Opiate dependence on suboxone therapy 3. Chronic Mood disorder 4. Anxiety Hospital Course: This is a 53 year old female with PMH of chronic opiate dependence on suboxone, chronic mood disorder, anxiety who presented with reported instability and jitteryness to the emergency room. Her documented CIWA scores in the ER were around 12, but primarily elevated due to anxiety per review. Upon arrival to the hospital floor, nursing continued to score patient's CIWA around 2. Her primary complaint was for shakiness, denied severe features. She routinely asked for valium, including dosing and frequency orders. She was witnessed getting to the restroom in her room without need for assistance by nursing staff. She was counseled on alcohol cessation, for which she agreed she should stop drinking. Given low risk mild withdrawal with low CIWA scores, she was discharged home. She was sent a short gabapentin taper for alcohol withdrawal and a small amount of oral valium to take if she had some ongoing withdrawal. MRI was performed which did not show evidence of acute infarction. MRI was ordered over concern for her imbalance by the overnight providers. Time Spent with Patient Time spent: Greater than 30 minutes Exam Vital Signs (past 8 hours): - 12/16/23 04:00 12/16/23 04:00 12/16/23 07:00 Temperature 97.9 F Pulse Rate 84 Respiratory Rate 12 Blood Pressure 143/74 H Pulse Oximetry 95 94 Oxygen Delivery Method Room Air Room Air Oxygen Flow Rate 12/16/23 07:18 12/16/23 08:00 Temperature 97.4 F L Pulse Rate 72 Respiratory Rate 16 Blood Pressure 143/82 H Pulse Oximetry 93 100 Oxygen Delivery Method Room Air Oxygen Flow Rate 0 Oxygen Delivery Method Room Air Oxygen Flow Rate 0 Narrative Exam Narrative: Gen: no acute distress, well appearing female CV: RRR no m/r/g Pulm: CTA b/l Abd: S NT ND Ext: mild tremulousness, minimally present when distracted Objective Labs 12/16/23 04:40 12/16/23 04:40 Labs: Laboratory Results - last 24 hr 12/15/23 12/15/23 12/15/23 18:27 18:39 20:35 WBC 5.2 RBC 3.99 L Hgb 13.2 Hct 37.9 MCV 94.9 MCH 33.0 MCHC 34.8 RDW 12.5 Plt Count 286 Neut % (Auto) 41.3 L Lymph % (Auto) 47.0 H [place] % (Auto) 9.4 Eos % (Auto) 0.6 L Baso % (Auto) 1.7 Neut # (Auto) 2200 Lymph # (Auto) 2500 [place] # (Auto) 500 Eos # (Auto) 0 Baso # (Auto) 100 D-Dimer 268 Sodium 137 Potassium 5.1 D Chloride 102 Carbon Dioxide 22 BUN 5 L Creatinine 0.66 Estimated GFR > 60 BUN/Creatinine Ratio 7.6 Glucose 104 H Lactate 2.9 H 2.0 Calcium 9.6 Total Bilirubin 1.4 H Conjugated Bilirubin 0.0 Unconjugated Bilirubin 0.3 AST 52 H ALT 26 Alkaline Phosphatase 45 Total Creatine Kinase 91 Troponin I 0.022 Total Protein 8.6 H Albumin 5.1 H Globulin 3.5 Albumin/Globulin Ratio 1.5 Nasal Screen MRSA (PCR) U Opiates 300ng/mL cut Negative Ur Oxycodone Screen Negative Urine Methadone Screen Negative Ur Barbiturates Screen Negative U Tricyclic Antidepress Negative Ur Phencyclidine Scrn Negative Ur Amphetamines Screen Negative U Methamphetamines Scrn Negative Ur MDMA Scrn (Ecstasy) Negative U Benzodiazepines Scrn Negative Urine Cocaine Screen Negative U Marijuana (THC) Screen Negative Urine pH Normal Urine Specific [place] Normal Ethyl Alcohol 88 H Ur Creatinine Normal 12/16/23 04:40 WBC 4.4 L RBC 3.68 L Hgb 12.2 Hct 35.1 L MCV 95.3 MCH 33.2 MCHC 34.8 RDW 12.2 Plt Count 254 Neut % (Auto) 23.4 L Lymph % (Auto) 63.0 H [place] % (Auto) 9.1 Eos % (Auto) 3.7 Baso % (Auto) 0.8 Neut # (Auto) 1000 L Lymph # (Auto) 2800 [place] # (Auto) 400 Eos # (Auto) 200 Baso # (Auto) 0 D-Dimer Sodium 134 L Potassium 3.8 D Chloride 101 Carbon Dioxide 29 BUN 6 L Creatinine 0.67 Estimated GFR > 60 BUN/Creatinine Ratio 9.0 Glucose 111 H Lactate Calcium 8.8 Total Bilirubin 0.7 Conjugated Bilirubin Unconjugated Bilirubin AST 32 ALT 22 Alkaline Phosphatase 48 Total Creatine Kinase Troponin I Total Protein 6.7 Albumin 3.9 Globulin 2.8 Albumin/Globulin Ratio 1.4 Nasal Screen MRSA (PCR) Not detected U Opiates 300ng/mL cut Ur Oxycodone Screen Urine Methadone Screen Ur Barbiturates Screen U Tricyclic Antidepress Ur Phencyclidine Scrn Ur Amphetamines Screen U Methamphetamines Scrn Ur MDMA Scrn (Ecstasy) U Benzodiazepines Scrn Urine Cocaine Screen U Marijuana (THC) Screen Urine pH Urine Specific [place] Ethyl Alcohol Ur Creatinine PFSH Social History household members: spouse Smoking Status: Current every day smoker alcohol intake: current Discharge Plan Discharge Plan Patient Disposition: Home Provider Discharge Comment: You were admitted to the hospital with jitteriness, likely due to mild alcohol withdrawal Discharge orders & Medications Prescriptions: New gabapentin 300 mg capsule See Rx Instructions .ROUTE .COMPLEX Qty: 10 0RF Rx Instructions: 300 mg PO every 6 hours day 1, every 8 hours day 2, every 12 hours day 3, then at night on day 4. diazepam 2 mg tablet 2 mg PO BID PRN (Reason: alcohol withdrawal) 3 Days Qty: 5 0RF Continued buprenorphine-naloxone 8-2 mg film 1 film sublingual ONCE PM PRN (Reason: pain) Patient Comments: cuts into 3 and splits the dose each day estradiol 1 mg tablet 1 mg PO ONCE PM lamotrigine 150 mg tablet 300 mg PO ONCE PM quetiapine 300 mg tablet 600 mg PO ONCE PM venlafaxine 37.5 mg tablet 37.5 mg PO DAILY Diet/Activity/Treatments Diet: Diet as Tolerated and Regular Activity: As tolerated Visit Report/Discharge Packet Stand Alone Forms: Patient Portal/API, Stroke Signs & Symptoms
--- NOTE | 2023-12-16 12:50 | CM.DANOTE ---
Patient is a 53 yo female who was admitted on 12/15/23 for Weakness/Fatigue. Pt has [employer] MCR for insurance and [place]CP [place] of state. EMR was reviewed. Per MD, pt with hx of TBI a few years ago and chronic opioid use and switched to Suboxone a couple years ago and drinks one bottle of wine daily. Pt admitted for possible alcohol withdrawal and medical management and now medically stable to d/c home today. Per MD, pt denies any needs and is visiting from [place] and planning to return and no barriers to discharge. Per RN, pt denies any concerns or resources at this time and CIWA was 1 and given information about cessation. Pt discharged in the AM prior to attempting to meet bedside with her. Plan: Patient discharged home to friend's house via friend POV and outpt f/u once she returns to [place]. NEIL Wall
== END 2023-12-16 10:40 | disposition home or self-care (01) ==
LOC: ED 21:14 → AC 21:23 → ICU 22:05 → AC 12-17 06:41 → ICU 12-17 06:41
PROVIDERS: Admitting Provider Internal Medicine; Emergency Provider Family Medicine Addiction Medicine; Referring Provider Family Medicine Addiction Medicine; Visit Provider Internal Medicine
DX: F10.239 Alcohol dependence with withdrawal, unspecified (principal); F11.20 Opioid dependence, uncomplicated; I10 Essential (primary) hypertension; F39 Unspecified mood [affective] disorder; F41.9 Anxiety disorder, unspecified; F17.200 Nicotine dependence, unspecified, uncomplicated; Y90.4 Blood alcohol level of 80-99 mg/100 ml
CPT/HCPCS: 36415; 70551; 71045; 80053; 80076; 80175; 80305; 80320; 81003; 81025; 82550; 83605; 83690; 83735; 84484; 85025; 85379; 85610; 85730; 87797; 93005; 93010; 96372; 96374; 96375; 99284; G0378; J1650; J2060; J2405; J3360; J3475